=== PATIENT | male | born 1955 | race African-American/Black ===

== ENCOUNTER 2021-05-17 02:32 | Emergency (ER) | payer MEDICARE, OTHER ==
[~2021-05-17] VITALS: Ht 165.1 cm; Wt 60.0 kg
[2021-05-17 03:04] VITALS: BP 127/67
== END 2021-05-17 03:18 | disposition home or self-care (01) ==
LOC: ER 02:32
DX: Z00.00 Encounter for general adult medical examination without abnormal findings (principal); I10 Essential (primary) hypertension; F20.9 Schizophrenia, unspecified
CPT/HCPCS: 99283